=== PATIENT | male | born 2000 | race Caucasian/White ===

== ENCOUNTER 2020-05-01 12:50 | Outpatient (REF) | payer OTHER, SELFPAY | END 2020-05-01 12:51 | disposition home or self-care (01) | LOC: HO.LAB 12:50 | PROVIDERS: Visit Provider Internal Medicine | DX: Z20.828 Contact with and (suspected) exposure to other viral communicable diseases (principal) | CPT/HCPCS: C9803; U0003 ==

== ENCOUNTER 2024-12-13 11:12 | Emergency (ER) | payer BC, SELFPAY ==
--- NOTE | ~2024-12-13 | XR_ITS ---
EXAMINATION: XR CHEST CLINICAL INFORMATION: palpitations, dyspnea COMPARISON: None available. TECHNIQUE: 2 views of the chest were obtained. FINDINGS: Hyperinflated lungs. Questionable 3 mm pulmonary nodule, left lung apex. No consolidation, pleural effusion or pneumothorax. Cardiomediastinal silhouette size is normal. S-shaped curvature of the thoracic spine. XR/XR chest 2V IMPRESSION: Hyperinflated lungs. Questionable 3 mm pulmonary nodule, left lung apex. No acute airspace disease. Electronically signed by: Ulices Mane MD 12/13/2024 12:34 PM EDT
--- NOTE | 2024-12-13 11:18 | ECG_ITS ---
Test Reason : CHEST PAIN Blood Pressure : */* mmHG Vent. Rate : 76 BPM Atrial Rate : 76 BPM P-R Int : 114 ms QRS Dur : 100 ms QT Int : 356 ms P-R-T Axes : 71 77 57 degrees QTcB Int : 400 ms Normal sinus rhythm Incomplete right bundle branch block Borderline ECG No previous ECGs available Referred By: Generic ED Physician Electronically Signed By: Fam Gilbert
[2024-12-13 12:11] VITALS: BP 148/72; PULSE 68; RESP 18; TEMP 36.2; O2SAT 99; BMI 18.1
--- NOTE | 2024-12-13 12:11 | ED_ITS ---
HPI - General Adult General Chief complaint: Arrhythmia/Palpitations Stated complaint: CP, Heart Palpatations, couple weeks Time Seen by Provider: 12/13/24 15:14 Source: patient Mode of arrival: ambulatory Limitations: no limitations History of Present Illness ED Provider: America Stokes PA-C HPI narrative: Patient is a 24 year old assigned male at with a history of vaping presenting to the emergency department today with intermittent palpitations. Patient states that over the last 2 weeks he has had intermittent episodes of being able to feel his heart beat more than usual. Patient states that the first episode lasted for a week but it did get better and now it has returned. Patient denies any dizziness, lightheadedness, abdominal pain, nausea, vomiting, fever, chills, blurry vision, double vision, loss of vision, chest pain, back pain, night sweats, pain with urination, increased urinary frequency, increased urinary urgency, blood in his urine or stool, syncope or a near syncopal episode, recent trauma or falls, bowel incontinence, bladder incontinence, or any other complaints at this time. Onset (ago): week(s) (2) Relieving factors: none Exacerbating factors: none Associated symptoms: denies other symptoms Related Data Allergies Allergy/AdvReac Type Severity Reaction Status Date / Time amphetamine (From Adderall) Allergy Hives Verified 12/13/24 12:14 dextroamphetamine (From Allergy Hives Verified 12/13/24 12:14 Adderall) Review of Systems 2 Constitutional: Constitutional: Reports no additional constitutional complaints, Denies chills, Denies fever(s) and Denies night sweats Eyes: Eyes: Reports no additional eye complaints, Denies blurry vision, Denies change in vision, Denies diplopia, Denies eye discharge, Denies loss of vision and Denies eye pain ENT: Denies dizziness Cardiovascular: Cardiovascular: Reports no additional cardiovascular complaints, Denies chest pain, Denies lightheadedness, Denies Loss of Consciousness and Reports palpitations (intermittently) Respiratory: Respiratory: Reports no additional respiratory complaints Gastrointestinal: Gastrointestinal: Reports no additional gastrointestinal complaints, Denies abdominal pain, Denies melena, Denies hematochezia, Denies change in bowel habits and Denies change in stool character Genitourinary: Genitourinary: Reports no additional male genitourinary complaints, Denies hematuria, Denies oliguria, Denies difficulty urinating, Denies dysuria, Denies urinary frequency, Denies urinary hesitancy, Denies urinary incontinence and Denies urinary urgency Musculoskeletal: Musculoskeletal: Reports no additional musculoskeletal complaints, Denies numbness and Denies tingling Neurologic: Denies dizziness, Denies loss of vision, Denies numbness and Denies tingling Psychiatric: Psychiatric: Reports no additional psychiatric complaints Endocrine: Endocrine: Reports no additional endocrine complaints and Reports palpitations (intermittently) Hematologic/Lymphatic: Hematologic/Lymphatic: Reports no additional hematologic/lymphatic complaints Allergic/Immunologic: Allergic/Immunologic: Reports no additional allergic/immunologic complaints [facility] Past Medical History Attestation statement: The following information was validated with the patient. Source: old records reviewed and nursing notes reviewed Social History Social History Advance Directives: No Advance Directives Information Provided: No Physical Exam ED Vital Signs: Vital Signs - 24 hr 12/13/24 12:11 12/13/24 14:58 12/13/24 16:27 Temperature 97.2 F 98.6 F 98.6 F Pulse Rate 68 79 79 Respiratory Rate 18 16 16 Blood Pressure 148/72 H 140/65 H 140/65 H Pulse Oximetry 99 99 99 Oxygen Delivery Method Room Air Room Air Room Air BMI result Body Mass Index 18.1 Const General: cooperative, no acute distress, alert and awake Nutritional Appearance: well nourished Orientation/consciousness: patient oriented x3 HENMT Head: Yes normal to inspection and Yes atraumatic Ears: hearing grossly normal bilaterally and external ears normal General nose exam: Normal external nose present, no nasal discharge noted and no epistaxis Face and sinus: Yes normal facial exam, No abrasion and No laceration Mouth: Normal oral and palatal mucosa present, no drooling and no muffled voice Eyes General: appearance normal, both eyes and all related structures Periorbital: periorbital findings normal Eyelids: Yes eyelids normal Conjunctivae: conjunctivae normal Pupils: Equal, round and reactive pupils present EOM: EOMs intact bilaterally Neck Neck: Yes normal visual inspection and Yes full ROM Resp Effort & Inspection: normal respiratory effort and able to speak in complete sentences Neuro General: patient oriented x3, moves all extremities and CN's II-XI intact bilaterally Cranial nerves: Yes Equal, round and reactive pupils present Cognition (Neuro): normal cognition Extrem General: Yes normal to inspection, Yes full ROM and Yes capillary refill normal Psych Appearance: grossly normal Mental Status: mental status grossly normal Affect: normal affect Attitude: cooperative Thought process: Normal thought process present Thought content: Normal thought content present Insight: Good insight present (Psych) Course Course Course Narrative: This is a rapid medical exam performed by Zenobia Olivares NP: Additional HPI, ROS, PE not included below will be deferred to primary provider. Patient is a 24-year-old male presenting with complaint of intermittent palpitations for the past few weeks. Started around 8 or 9 am today. Denies chest pain, reports mild dyspnea associated. Denies recent cough, fevers. Plan: EKG, labs, CXR Medical Decision Making Medical Decision Making [facility] Narrative: Patient is a 24 year old assigned male at with a history of vaping presenting to the emergency department today with intermittent palpitations. Patient's physical exam was unremarkable. Patient's blood work was unremarkable. Patient's EKG was unremarkable. Patient's chest x-ray showed a 3mm nodule but was otherwise unremarkable. Patient's clinical presentation is most consistent with palpitations. I explained my physical exam findings as well as all test results to the patient. I answered all questions asked by the patient. I stressed the importance of the patient taking his medication as directed (either prescribed or as the over the counter packaging recommends). I stressed the importance of the patient following up with his primary care provider and the beater machine operator. I stressed the importance of the patient returning to the emergency department immediately if his symptoms were to worsen or if he were to develop any dizziness, shortness of breath, difficulty breathing, chest pain, blurry vision, loss of vision, nausea, vomiting, abdominal pain, fever, chills, back pain, or any other complaints. Patient verbalized agreement and understanding with this treatment plan and discharge. Differential Diagnosis Differential Diagnoses: The differential diagnosis associated with the presentation includes Palpitations Admission/Observation Consideration of admission/observation: Escalation of care including admission/observation considered Patient would have been admitted to the hospital had his work up had any findings where hospital admission was appropriate and his clinical presentation warranted hospital admission. Lab Data [facility] Lab Attestation statement: I reviewed the patient's lab results. My interpretation of these results are in the [facility] Rationale portion of this note. 12/13/24 12:30 12/13/24 12:30 Labs: Lab Results 12/13/24 12/13/24 Range/Units 12:30 15:16 WBC 8.7 (4.8-10.8) X10*3/uL RBC 4.86 (4.60-5.80) X10*6/uL Hgb 14.9 (14.0-18.0) g/dl Hct 40.4 L (42.0-52.0) % MCV 83.1 (80.0-98.0) fL MCH 30.7 (27.0-33.0) pg MCHC 36.9 H (31.0-36.0) g/dl RDW 11.9 (11.0-16.0) % Plt Count 288 (160-400) X10*3/uL MPV 9.5 (9.4-12.4) fL Immature Gran % (Auto) 0.2 (0.0-0.4) % Neut % (Auto) 56.4 (45-73) % Lymph % (Auto) 32.3 (20-40) % [place] % (Auto) 8.7 (2-11) % Eos % (Auto) 1.3 (0-4) % Baso % (Auto) 1.1 (0-2) % Lymph # (Auto) 2.8 (1.2-4.9) X10*3/uL [place] # (Auto) 0.8 (0.1-1.2) X10*3/uL Eos # (Auto) 0.1 (0.0-0.4) X10*3/uL Baso # (Auto) 0.1 (0.0-0.2) X10*3/uL Abs Immat Gran (auto) 0.02 (0.00-0.03) X10*3/uL Absolute Neuts (auto) 4.9 (2.0-8.3) x10*3/uL Absolute Nucleated RBC 0.000 (0.0-0.012) X10*3/uL Nucleated RBC % (auto) 0.0 (0.0-0.2) /100WBC Sodium 142 (135-145) mmol/L Potassium 4.1 (3.3-5.1) mmol/L Chloride 105 (96-108) mmol/L Carbon Dioxide 28 (22-29) mmol/L Anion Gap 13 (12-20) BUN 10 (9-16) mg/dL Creatinine 0.96 (0.5-1.4) mg/dL Estim Creat Clear Calc 89.8 Estimated GFR > 60 Random Glucose 93 (60-115) mg/dL Calcium 9.4 (8.4-10.2) mg/dL Magnesium 1.9 (1.6-2.6) mg/dL Total Bilirubin 0.4 (0.0-1.0) mg/dL AST 21 (5-37) U/L ALT 18 (0-40) U/L Alkaline Phosphatase 68 (39-117) U/L Total Protein 7.5 (6.5-8.0) g/dL Albumin 5.1 H (3.5-5.0) g/dL TSH 1.05 (0.32-4.0) uIU/mL Influenza Type A (PCR) NEGATIVE (Negative) Influenza Type B (PCR) NEGATIVE (Negative) RSV RNA Qual (PCR) NEGATIVE (Negative) SARS-CoV-2 RNA (RT-PCR) NEGATIVE (Negative) Independent Interpretation I performed an independent interpretation of an: EKG and Plain X-Ray Interpretation: My interpretation is in agreement with the radiologist's impression of this imaging study. L EXAMINATION: XR CHEST CLINICAL INFORMATION: palpitations, dyspnea COMPARISON: None available. TECHNIQUE: 2 views of the chest were obtained. FINDINGS: Hyperinflated lungs. Questionable 3 mm pulmonary nodule, left lung apex. No consolidation, pleural effusion or pneumothorax. Cardiomediastinal silhouette size is normal. S-shaped curvature of the thoracic spine. XR/XR chest 2V IMPRESSION: Hyperinflated lungs. Questionable 3 mm pulmonary nodule, left lung apex. No acute airspace disease. Electronically signed by: Ulices Mane MD 12/13/2024 12:34 PM EDT Dictated By: Ulices De La Cruz MD Signed By: Electronically signed by Ulices Davis MD 12/13/24 1234 I independently interpreted this EKG and am in agreement with the below findings: Vent. Rate: 76 BPM Atrial Rate: 76 BPM P-R Int: 114 ms QRS Dur: 100 ms QT Int: 356 ms P-R-T Axes: 71 77 57 degrees QTcB Int: 400 ms Normal sinus rhythm Incomplete right bundle branch block No previous ECGs available Electronically Signed By: Fam Gilbert Dictated By: Fam Gilbert MD Signed By: Electronically signed by Fam Gilbert MD 12/13/24 4714 Radiology Impression Discussion of test interpretation with radiology: I have reviewed the radiologist's reading. Discharge Plan Discharge Clinical Impression: Palpitations Patient Disposition: Home, Self-Care Instructions: Heart Palpitations (DC) Additional Instructions: Your work up today was reassuring that there is no EMERGENT process for your symptoms. Your chest x-ray did show an incidental (accidental) finding of a 3mm pulmonary nodule in the left lung apex. This is likely benign however, it is CRUCIAL you follow up about this with a primary care provider. You should follow up with a beater machine operator for your palpitations. IF you are prescribed home medications and/or you are taking over the counter medications at home - it is very important you continue to do so as prescribed / directed unless told otherwise. Follow up with a primary care provider. Return to the emergency department immediately if your symptoms worsen or if you develop any numbness, tingling, dizziness, shortness of breath, difficulty breathing, chest pain, blurry vision, loss of vision, nausea, vomiting, abdominal pain, fever, chills, back pain, or any other complaints. L If you do not have a primary care provider - call any of the below numbers to establish and follow up with a primary care provider. [facility] Primary Care ([place]) [phone] [place] [address], [address] [facility] Primary Care ([address] [place]) [phone] [place] [address], [address] [facility], [address] [facility] Primary Care ([address] [place]) [phone] [place] [address], [address] [facility], [address] [facility] Primary Care ([place]) [phone] [place] [address], [address] [place], [address] [facility] Family Medicine [phone] [place] [address], [address] Please see the information below about our Patient Portal. If you are not yet enrolled in the [facility] Patient Portal, you will receive an enrollment email invitation following your visit to any [facility] setting. You may also self-enroll in the Patient Portal by visiting our website: [email or web address] The following information is required to access the Patient Portal: - Your [facility] Medical Record Number - Your personal home email address (must match what is in your electronic medical record, Registration staff can assist with this) - Name - Date of Capabilities of the Patient Portal: - Message some providers - View upcoming appointments - Access your health summary, medical history, and visit history - View current conditions and allergies - View procedure and lab results - View your medications, including guidelines, side effects, and precautions - Complete pre-appointment questionnaires requested by your provider - Ready summary reports of your office visits and procedures To access the Patient Portal Mobile [employer], follow these directions: - Search Tailored Fit in the Virg[employer] Store or SupplyBid Store - Download the Vir[employer]ilio - Search for [facility] - Enter your login/password Referrals: [facility] Cardiovascular Specialists [Provider Group] Referral Note: Call to establish and follow up with the beater machine operator about your palpitations. Stand Alone Forms: Work/School Release Interventions: ED Discharge Assessment Last Done: 12/13/24 16:27 Discharge Date/Time: 12/13/24 16:27 Print Language: Macanese
[2024-12-13 12:36] LABS: MANUAL DIFF FLAG NO
[2024-12-13 12:37] LABS: Hematocrit 40.4 % (42.0-52.0); Hemoglobin 14.9 g/dl (14.0-18.0); Imm Gran Abs Auto 0.02 X10*3/uL (0.00-0.03); Imm Gran Pct Auto 0.2 % (0.0-0.4); Lymphocytes Absolute Auto 2.8 X10*3/uL (1.2-4.9); Mean Corpuscular HGB Conc 36.9 g/dl (31.0-36.0); Mean Corpuscular Hemoglobin 30.7 pg (27.0-33.0); Mean Corpuscular Volume 83.1 fL (80.0-98.0); NRBC Abs Auto 0.000 X10*3/uL (0.0-0.012); NRBC Pct Auto 0.0 /100WBC (0.0-0.2); Platelet Count 288 X10*3/uL (160-400); Red Blood Count 4.86 X10*6/uL (4.60-5.80); White Blood Count 8.7 X10*3/uL (4.8-10.8)
--- OUTSIDE RECORDS SUMMARY | 2024-12-13 12:41 | XMS_ITS | Encounter Summary ---
Author Organization [facility] Address [address] [place] [phone] Phone Care Team Providers Care Cigar Making Machine Operator Name Role Phone Willie Garcia MD Primary Care Provider [phone] Encounter Details Date Type Department Care Team (Late st Contact Info) Description 12/19/2016 Conversion Encounter [facility] [address] [place] [address] Social History Tobacco Use Types Packs/Day Years Used Date Smoking Tobacco: Never Comments:Never smoker Sex and Gender Information Value Date Recorded Sex Assigned at Not on file Legal Sex Male 5:14 PM EDT Gender Identity Not on file Sexual Orientation Not on file documented as of this encounter Plan of Treatment Not on file documented as of this encounter Visit Diagnoses Not on filedocumented in this encounter Care Teams Cigar Making Machine Operator Relationship Specialty Start Date End Date Willie Garcia MD [address] [place] [address] PCP - General 12/13/16 08/13/22 documented as of this encounter
--- OUTSIDE RECORDS SUMMARY | 2024-12-13 12:42 | XMS_ITS | Clinical Summary ---
Author Organization [facility] Address [address] [place] [address] Care Team Providers Care Application Support Technician Name Role Phone Unavailable Primary Care Provider Unavailabl e Source Comments PLEASE NOTE, if this patient is a minor, it may be UNLAWFUL to discuss sensitive information that is contained in these records (such as FAMILY PLANNING, MENTAL HEALTH or SUBSTANCE ABUSE) with the minor patient's parent or other person without the patient's specific authorization.[facility] Allergies No known active allergies Medications fluoride, sodium, (CLINPRO 5000) 1.1 % psteIndications :Risk for dental caries, high Colt twice a day every day for 2 minutes each time. Expectorate, but do not rinse,eat or drink for 30 minutes after using this. 112 g 3 03/22/2022 Active Active Problems No known active problems Social History Tobacco Use Types Packs/Day Years Used Date Smoking Tobacco: Never Smokeless Tobacco: Current Snuff Tobacco Cessation:Ready to Q uit: Not Asked; Counseling Given: Not Answered Social Connections Answer Date Recorded Connectedness 0 01/17/2024 Financial Resource Strain Answer Date R ecorded Financial Resource Strain 0 2021 Stress Answer Date Recorded Stress 0 03/22/2022 Physical Activity Answer Date Recorded Physical Activity 0 03/22/2022 Food Insecurity Answer Date Recorded Food 0 01/29/2024 Transportation Needs Answer Date Record ed Transportation 0 03/22/2022 Housing Stability Answer Date Recorded Housing 0 03/22/2022 Safety and Environment Answer Date Tomy rded Safety 0 03/22/2022 Utilities Answer Date Recorded Utilities 0 03/22/2022 Employment Answer Date Recorded Stress 0 01/17/2024 Sex and Gender Information Value Date Recorded Sex Assigned at Not on file Legal Sex Male 11:14 AM PDT Gender Identity Not on file Sexual Orientation Not on file Last Filed Vital Signs Vital Sign Reading Time Taken Comments Blood Pressure 130/77 03/22/2022 11:06 AM EST Pulse 82 03/22/2022 11:06 AM EST Temperature - - Respiratory Rate - - Oxygen Saturation - - Inhaled Oxygen Concentration - - Weight - - Height - - Body Mass Index - - Plan of Treatment Health Maintenance Due Date Last Done Comments Anxiety Screening 1999 Dental Perio Charting 1999 Dental Prophy 1999 Hepatitis C Screening 1999 Tobacco Cessation Counseling (#1) 1999 Tobacco Screening 1999 HIV Screening 2014 Imm-DTaP/Tdap/Td (7 - Td or Tdap) 03/15/2023 03/15/2013, 12/12/2004, 09/24/2000, Additional history exists Hypertension Screening (#1) 03/22/2023 Dental BW 03/24/2023 03/22/2022 Dental Examination 03/24/2023 03/22/2022 [id number] () 01/04/2024 Alcohol and Drug Screen 05/05/2024 Depression Annual Screen 05/05/2024 Imm-Influenza (#1) 2025 03/21/2016, 1 05/15/2014, 02/03/2013 Dental FMX/Pano 03/24/2027 03/22/2022 Imm-Hepatitis B Completed 09/24/2000, 02/03, 1999 Imm-Varicella Completed 03/22/2009, 02/26/2000 Imm-HPV Completed 01/19/2014, 10/2012, 02/03/2013 Procedures Procedure Name Priority Date/Time Associated Diagnosis Comments INTRAORAL - COMP SERIES OF RADIOGRAPHIC IMAGES Routine 03/22/2022 11:00 AM EST Caries of dentin COMP ORAL EVALUATION - NEW/ESTABLISHED PATIENT Routine 03/22/2022 11:00 AM EST Caries of dentin from Last 3 Months or Most Recently Relevant to Health Maintenance Insurance DELTA DENT[facility]
[2024-12-13 13:02] LABS: Alanine Aminotransferase 18 U/L (0-40); Albumin Level 5.1 g/dL (3.5-5.0); Alkaline Phosphatase 68 U/L (39-117); Anion Gap 13 (12-20); Aspartate Amino Transferase 21 U/L (5-37); Blood Urea Nitrogen 10 mg/dL (9-16); Calcium 9.4 mg/dL (8.4-10.2); Carbon Dioxide 28 mmol/L (22-29); Chloride 105 mmol/L (96-108); Creatinine Clr Calc Pharmacy 89.8; Estimated Glomerular Filt Rate > 60; Magnesium 1.9 mg/dL (1.6-2.6); Potassium 4.1 mmol/L (3.3-5.1); Sodium 142 mmol/L (135-145); Total Protein 7.5 g/dL (6.5-8.0)
[2024-12-13 14:58] VITALS: BP 140/65; PULSE 79; RESP 16; TEMP 37; O2SAT 99
[2024-12-13 15:58] LABS: Resp Syncy Virus RNA Qual PCR NEGATIVE (Negative); SARS COV2 PCR INHOUSE NEGATIVE (Negative)
[2024-12-13 16:27] VITALS: BP 140/65; PULSE 79; RESP 16; TEMP 37; O2SAT 99
== END 2024-12-13 16:27 | disposition home or self-care (01) ==
PROVIDERS: Physician Assistant Medical; Registered Nurse Emergency; Emergency Provider Emergency Medicine
DX: R00.2 Palpitations (principal); R06.00 Dyspnea, unspecified
CPT/HCPCS: 36415; 71046; 80053; 83735; 84443; 85025; 87637; 93005; 99283; 99284

== ENCOUNTER → 2024-12-13 11:18 | Outpatient (BNV) | payer BC, SELFPAY | PROVIDERS: Visit Provider Internal Medicine Cardiovascular Disease | DX: I45.10 Unspecified right bundle-branch block (principal) | CPT/HCPCS: 93010 ==

== ENCOUNTER → 2024-12-13 12:13 | Outpatient (BNV) | payer BC, SELFPAY | PROVIDERS: Visit Provider Radiology Diagnostic Radiology | DX: R06.00 Dyspnea, unspecified (principal) | CPT/HCPCS: 71046 ==

== ENCOUNTER 2025-01-05 13:21 | Outpatient (AMB) | payer BC, SELFPAY ==
[2025-01-05 13:26] VITALS: BP 110/62; PULSE 92; BMI 19.8
--- NOTE | 2025-01-05 13:26 | A.OFFVIS_ITS ---
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 Patient was recently in the emergency room for these where he was ruled out for ACS. Patient with no known history of coronary artery disease, ischemic disease, or cardiomyopathy. Patient does have some family history of coronary artery disease. 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 Patient is denying any exertional chest pain, shortness of breath, dizziness, orthopnea, PND, leg edema, presyncope or syncope. Patient notes that he vapes and is occasionally drinking malt beverages otherwise denies any heavy alcohol use. Patient also notes that he has quit energy drinks and is drinking about 24 to 32 oz water a day. [facility] Family History Father Heart attack Paternal Grandmother Heart attack Social History Alcohol intake: current Alcohol intake frequency: holidays/special occasions only Patient Tobacco Use Status: Never used Tobacco Substance Use Type: Inhalants Review of Systems Const Denies chills, Denies daytime sleepiness, Denies fatigue, Denies fever(s), Denies poor appetite, Denies snoring, Denies stops breathing during sleep, Denies weight gain and Denies weight loss Eyes Denies loss of vision Card Reports chest pain, Reports chest pain at rest, Reports chest pain with activity, Denies claudication, Denies leg edema, Denies lightheadedness, Denies palpitations, Denies dyspnea, Denies dyspnea on exertion and Denies orthopnea Resp Denies cough, Denies excessive phlegm production, Denies pain with cough, Denies dyspnea, Denies dyspnea on exertion, Denies snoring, Denies wheezing and Denies other GI Denies abdominal pain, Denies hematochezia, Denies change in bowel habits, Denies nausea and Denies vomiting Denies dysuria and Denies urinary frequency Musc Denies arthralgias and Denies muscle weakness Skin/Breast Denies nail changes and Denies rash Neuro Denies loss of vision and Denies memory loss Psych Denies depression, Reports difficulty concentrating, Denies auditory hallucinations and Denies memory loss Endo Denies fatigue and Denies palpitations Hung/Lymph Denies easy bruising Aller/Immun Denies wheezing Physical Exam Vital Signs: Last Vital Signs Pulse 92 01/05/25 13:26 BP 110/62 01/05/25 13:26 BMI result Body Mass Index 19.8 Const General: cooperative, healthy appearing, comfortable and no acute distress Orientation/consciousness: patient oriented x3 HEENT Head: Yes normal to inspection Neck Neck: Yes normal visual inspection, Yes trachea midline and Yes supple Chest Chest palpation & inspection: normal inspection of the chest Resp Effort & Inspection: normal respiratory effort Auscultation: clear to auscultation bilaterally, no crackles, no rales, no rhonchi and no wheezes Cardio Jugular venous distension: no JVD Palpation: normal PMI Rate: regular rate Rhythm: regular rhythm Heart sounds: S1 normal heart sound present, S2 normal heart sound present, no click, no gallops, no murmurs and no rubs Peripheral pulses: Peripheral pulses 2+ throughout GI Inspection: Yes normal to inspection Palpation (GI): Soft to palpation Auscultation: normal bowel sounds Skin General skin exam: no rashes or lesions noted Neuro General: patient oriented x3 Extrem General: Yes normal to inspection, No no pedal edema and No calf tenderness Psych Appearance: grossly normal Mental Status: mental status grossly normal Speech and movement: Normal speech and movement present Office Procedures EKG Details: EKG today showed normal sinus rhythm, rate 92 beats per minute, normal VT, [place]. [id number], Complete Assessment & Plan Assessment & Plan (1) Chest pain: Code(s): R07.9 - Chest pain, unspecified Category: Medical (2) Palpitations: Code(s): R00.2 - Palpitations Category: Medical (3) Shortness of breath: Code(s): R06.02 - Shortness of breath Category: Medical Plan Patient was recently in the hospital for palpitations and chest discomfort where he was ruled out for ACS. Patient's symptoms of chest pain and shortness of breath sounding atypical. His palpitations could be either supraventricular or ventricular ectopies, dehydration, or stress related. However, patient will need a complete cardiac workup to rule out cardiac etiology. Therefore, we will get a treadmill stress test to evaluate for ischemic changes. Patient will also get a echo to evaluate for LV systolic and diastolic dysfunction as well as valvular pathologies. We will also get a Holter study to assess for any potential arrhythmias. Treatment based on findings. Advised heart healthy diet, regular exercise, drinking at least 64 oz of water daily, stress medication strategies, and management of vascular risk factors. Follow up after the completion of testings. In the interim, patient will call the office with any concerns or change in symptoms. Advised to seek ER care in case of exertional chest pain not resolved with rest. This note was generated using voice recognition software. While every effort has been made to ensure accuracy and proper bankruptcy processor, there may be occasional errors that could affect the content or meaning of the described symptoms. Orders: Orders CA echo transthoracic complete Today R07.9 - Chest pain, unspecified CA stress test Today R07.9 - Chest pain, unspecified ECG 3 day holter monitor Today R00.2 - Palpitations AMB EKG-In Office Today R07.9 - Chest pain, unspecified Coding Level of Care Code New Pt Level 4 (94563) Complex EM visit Add On G2211 Diagnoses Chest pain R07.9 Palpitations R00.2 Shortness of breath R06.02 CPT Codes EKG - CPT: 27611-[id number], Complete ([id number]) Time Spent (min) 31 Comment Time spent in reviewing the chart, test results, assessment, counseling and documentation.
--- OUTSIDE RECORDS SUMMARY | 2025-01-05 15:38 | XMS_ITS | Clinical Summary ---
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 Schwartz 01/20 - to have surgical repair. Also with ptosis, which Dr. Schwartz states he would address afterward Immunizations Immunization Administration Dates Next Due DTaP 5 12/12/2004, 1,02/26/2000,08/21,1999 HPV, Quadrivalent 01/19/2014,03/10/2013,02/04/20 13 Hep A, ped/adol 01/19/2014,03/22/2009 Hep B, ped/adol 09/24/2000,02/26/2000,1999 Hib (HbOC) 09/24/2000,02/26/2000,1999 IPV 12/12/2004,09/24/2000 Influenza, injectable, quadr ivalent, preservative free 03/21/2016 Influenza, intranasal, quadrivalent 03/15/2015,1 MMR 12/12/2004,02/26/2000 Meningococcal Conj (Menactra) MCV4P 03/15/2015,1 05/15/2012 OPV 1999,1999 Tdap 03/15/2013 Varicella 03/22/2009,02/26/2000 Family History Relation Name Status Comments Brother Alive Brother: Alive and well Father Alive Father: Alive a nd well Mother Alive Mother: Alive a nd well Other Family history of Cancer, unknown, Family history of Hyperlipidemia, Family history of Migraines, Family history of Asthma, Family history of *Dental caries Paternal Grandfather Paterna l grandfather: Diabetes mellitus Social History Tobacco Use Types Packs/Day Years Used Date Smoking Tobacco: Never Smokeless Tobacco: Never Comments:Never smoker Sex and Gender Information Value Date Recorded Sex Assigned at Not on file Legal Sex Male 5:14 PM EDT Gender Identity Not on file Sexual Orientation Not on file Last Filed Vital Signs Vital Sign Reading Time Taken Comments Blood Pressure 96/59 10/12/2018 10:54 AM EDT Pulse 60 10/12/2018 10:54 AM EDT Temperature 36.6 C (97.8 F) 10/12/2018 10:54 AM EDT Respiratory Rate - - Oxygen Saturation - - Inhaled Oxygen Concentration - - Weight 55.7 kg (122 lb 12.8 oz) 019 10:54 AM EDT Height 167 cm (5' 5.75 ) 05/14/2016 12: 00 AM EST Body Mass Index - - Plan of Treatment Health Maintenance Due Date Last Done Comments DTaP,Tdap,and Td Vaccines (7 - Td or Tdap) 03/15/2023 03/15/2013, 12/12/2004, 09/24/2000, Additional history exists Influenza Vaccines (#1) 2024 03/21/20 16, 03/15/2015, 02/03/2013 COVID-19 Vaccine ( season) 2025 08/30/2020, 08/08/2020 HIB Vaccines Completed 09/24/2000, 02/03, 1999 Hepatitis B Vaccines Completed 09/24/2000, 02/26/2000, 1999 IPV Vaccines Completed 12/12/2004, 09/03, 1999, Additional history exists MMR Vaccines Completed 12/12/2004, 02/26/2000 Varicella Vaccines Completed 03/22/2009, 02/26/2000 HPV Vaccines Completed 01/19/2014, 10/2012, 02/03/2013 Hepatitis A Vaccines Completed 01/19/2014, 03/22/20 09 Meningococcal Vaccine Completed 03/15/2015, 013 Men B Vaccine Aged Out No longer elig ible based on patient's age to complete this topic Pneumococcal Vaccine Aged Out No long er eligible based on patient's age to complete this topic Insurance [employer]
--- OUTSIDE RECORDS SUMMARY | 2025-01-05 15:38 | XMS_ITS | Clinical Summary ---
Author Organization [facility] Address [address] [place] [address] Care Team Providers Care Putty And Caulking Supervisor Name Role Phone Unavailable Primary Care Provider [...] % psteIndications :Risk for dental caries, high [place] twice a day every day for 2 [...] BW 03/24/2023 03/22/2022 Dental Examination 03/24/2023 03/22/2022 [id number] () 01/04/2024 Alcohol and Drug Screen 05/05/2024 [...]
--- OUTSIDE RECORDS SUMMARY | 2025-01-05 15:38 | XMS_ITS | Encounter Summary ---
Author Organization [facility] Address [address] [place] [phone] Phone Care Team Providers Care Dressing Room Attendant Name Role Phone Willie Garcia MD Primary Care Provider Encounter Details Date Type Department Care Team (Late st Contact Info) Description 12/19/2016 Conversion Encounter [facility] [address] [place] [address] Social History Tobacco Use Types Packs/Day Years [...] on filedocumented in this encounter Care Teams Dressing Room Attendant Relationship Specialty Start Date End Date Willie Garcia MD [address] [place] [address] PCP - General 12/13/16 08/13/22 documented as of this encounter
== END 2025-01-05 14:00 | disposition home or self-care (01) ==
LOC: HO.HCS 13:21
DX: R07.9 Chest pain, unspecified (principal); R00.2 Palpitations; R06.02 Shortness of breath
CPT/HCPCS: 93010; 99204

== ENCOUNTER → 2025-01-05 13:21 | Outpatient (BNVA) | payer BC, SELFPAY | DX: R00.2 Palpitations (principal); R07.9 Chest pain, unspecified | CPT/HCPCS: 93005 ==

== ENCOUNTER 2025-01-29 10:32 | Outpatient (AMB) | payer OTHER, SELFPAY ==
--- OUTSIDE RECORDS SUMMARY | 2025-01-29 10:35 | XMS_ITS | Encounter Summary ---
Author Organization [facility] Address [address] [place] [phone] Phone Care Team Providers Care Sap Bods Developer Name Role Phone Willie Garcia MD Primary Care Provider [phone] Encounter Details Date Type Department Care Team (Late st Contact Info) Description 12/19/2016 Conversion Encounter [facility] [address] [place] [address] Social History Tobacco Use Types Packs/Day Years [...] on filedocumented in this encounter Care Teams Sap Bods Developer Relationship Specialty Start Date End Date Willie Garcia MD [address] [place] [address] PCP - General 12/13/16 08/13/22 documented as of this encounter
--- OUTSIDE RECORDS SUMMARY | 2025-01-29 10:35 | XMS_ITS | Clinical Summary ---
Author Organization [facility] Address [address] [place] [address] Care Team Providers Care Canning Machine Operator Name Role Phone Unavailable Primary Care Provider [...] % psteIndications :Risk for dental caries, high [place] twice a day every day for 2 [...] BW 03/24/2023 03/22/2022 Dental Examination 03/24/2023 03/22/2022 Alcohol and Drug Screen 05/05/2024 Depression Annual Screen 05/05/2024 [id number] ( season) 2025 Imm-Influenza (#1) 2025 03/21/2016, 1 05/15/2014, 02/03/2013 [...]
--- OUTSIDE RECORDS SUMMARY | 2025-01-29 10:35 | XMS_ITS | Clinical Summary ---
Author Organization [facility] Address [address] [place] [address] Phone Care Team Providers Care Ditch Tender Name Role Phone Unavailable Primary Care Provider [...]
[2025-01-29 10:41] VITALS: BP 108/60; PULSE 86; TEMP 36.7; O2SAT 99; BMI 19.8
--- NOTE | 2025-01-29 10:41 | MHC.OFFWIV ---
Intake Vital Signs 01/29/25 10:41 Height 5 ft 8 in Weight 58.967 kg BMI 19.8 BP 108/60 Blood Pressure Location Rt brachial Position Sitting Pulse 86 Pulse Source Pulse Oximeter Temp 98.1 F Temp Source Oral Pulse Oximetry (%) 99 Intake Visit Reasons: EP cough, cogestion, headache, sore throat Patient Tobacco Use Status: Never used Tobacco Allergies amphetamine (From Adderall) Allergy (Verified 01/29/25 10:42) Hives dextroamphetamine (From Adderall) Allergy (Verified 01/29/25 10:42) Hives Do you need a note to return to daycare/school/sports/work: Yes HPI HPI Comments History of Present Illness Details This is a 24-year-old male with no significant medical history who presents to the clinic for fatigue, malaise, myalgias, sore throat, headache, congestion, dry cough ongoing for the past 7-8 days. Not improving. He has tried [id number] medications with little to no relief. Denies chest pain, shortness of breath, nausea, vomiting, abdominal pain, fevers, chills, vision changes, dizziness and weakness Physical exam benign History and physical exam concerning for viral illness versus bronchitis( most likely) Unlikely pneumonia, PE, ACS, hypoxia, acute respiratory failure. I do not suspect strep throat, mononucleosis peritonsillar retropharyngeal abscess. No signs of epiglottitis or acute threat to airway Plan will obtain flu, COVID, RSV. Will send patient home on prednisone, benzonatate Perles and antibiotic due to length of symptoms. Educated patient on diagnosis and treatment plan, answered all question, patient verbalizes understanding. At this time patient will be discharged home, advised to return with new or worsening symptoms. Educated on worrisome signs and symptoms and when to return. At this time I feel comfortable discharge home. [facility] Family History Father Heart attack Paternal Grandmother Heart attack Social History Alcohol intake: current Alcohol intake frequency: holidays/special occasions only Patient Tobacco Use Status: Never used Tobacco Substance Use Type: Inhalants Review of Systems Const Details: Constitutional : No Weight loss, No Fever, No Chills, No Fatigue, No Malaise ENT/Mouth : No sore throat, No Rhinorrhea Eyes: No Eye Pain, No Swelling, No Redness Cardiovascular : No Chest Pain, No SOB, No Dyspnea on Exertion, No Orthopnea, No Edema, No Palpitations Respiratory : No Cough, No Sputum, No Wheezing Gastrointestinal : No Nausea, No Vomiting, No Diarrhea, No Constipation, No abdominal Pain, No Hematochezia, No Melena Genitourinary : No Dysuria, No Urinary Frequency, No Hematuria, Musculoskeletal : No joint pain, No Myalgias, No Joint Swelling Skin : No Skin Lesions, No rash Neuro : No Weakness, No Numbness, No Dizziness, No Headache Psych : No Anxiety/Panic, No Depression Heme/Lymph: No Bruising, No Bleeding,No Lymphadenopathy Endocrine : No Polyuria, No Polydipsia All other systems reviewed and are negative All systems reviewed & are unremarkable except as noted in HPI and below Physical Exam Exam Exam: Appearance: Alert.? Oriented X3.? No acute distress.? Head: Normocephalic, atraumatic, no step-offs or deformities Eyes: Pupils equal, round and reactive to light.? ENT: Pharynx normal.? Neck: Normal inspection.? Neck supple.? CVS: Normal heart rate and rhythm.? Pulses normal.? Respiratory: No respiratory distress.? Breath sounds normal.? Abdomen: Soft and nontender.? Skin: Skin warm and dry.? Normal skin color.? Normal skin turgor.? Extremities: No lower extremity edema.? No calf ttp. 5/5 strength to bilateral upper and lower extremities Back: No midline tenderness, no C-spine tenderness, full range of motion, no CVA tenderness bilaterally Neuro: Oriented X 3.? No motor deficit.? No sensory deficit. CN 2-12 intact Vital Signs: Last Vital Signs Temp 98.1 F 01/29/25 10:41 Pulse 86 01/29/25 10:41 BP 108/60 01/29/25 10:41 Pulse Ox 99 01/29/25 10:41 BMI result Body Mass Index 19.8 Vital signs stable Results AMB Rapid Strep AMB Rapid Strep Negative Last Edit by Jose M Godinez CMA on 01/29/25 10:51 Results Reviewed Results Reviewed: Laboratory Last Values Strep Scn Rapid Clinic Negative 01/29/25 10:47 Assessment & Plan Assessment & Plan (1) Upper respiratory infection: Code(s): J06.9 - Acute upper respiratory infection, unspecified (2) Bronchitis: Code(s): J40 - Bronchitis, not specified as acute or chronic Plan Take your medications as prescribed. If you were prescribed antibiotics today, it is important that you take your medication to their entirety, do not skip any doses, do not finish them early. Follow-up with your primary care provider this week. Return to the emergency department with new or worsening symptoms. Such as fevers, chills, chest pain, shortness of breath, nausea, vomiting, dizziness, headache, vision changes, lethargy In case of emergency call 911 Orders: Orders SARS-CoV2/FLU/RSV Today R09.89 - Other specified symptoms and signs involving the circulatory and respiratory systems AMB Rapid Strep Screen Today Z13.9 - Encounter for screening, unspecified Medications: New prednisone 40 mg (2 x 20 mg) PO DAILY 10 tabs 0RF 5 days benzonatate 100 mg PO BID PRN 14 caps 0RF cough doxycycline hyclate 100 mg PO BID 14 caps 0RF 7 days Coding Level of Care Code Est Pt Level 3 (93259) Diagnoses Upper respiratory infection J06.9 Bronchitis J40
== END 2025-01-29 10:54 | disposition home or self-care (01) ==
PROVIDERS: Visit Provider Physician Assistant
DX: J06.9 Acute upper respiratory infection, unspecified (principal); J40 Bronchitis, not specified as acute or chronic; Z13.9 Encounter for screening, unspecified

== ENCOUNTER 2025-01-29 10:32 | Outpatient (REF) | payer OTHER, SELFPAY ==
[2025-01-29 14:37] LABS: Resp Syncy Virus RNA Qual PCR NEGATIVE (Negative); SARS COV2 PCR INHOUSE NEGATIVE (Negative)
== END 2025-01-29 10:33 | disposition home or self-care (01) ==
LOC: HO.LAB 10:32
PROVIDERS: Physician Assistant
DX: J40 Bronchitis, not specified as acute or chronic (principal); R09.89 Other specified symptoms and signs involving the circulatory and respiratory systems; J06.9 Acute upper respiratory infection, unspecified; J02.9 Acute pharyngitis, unspecified
CPT/HCPCS: 87637; 87880

== ENCOUNTER → 2025-02-07 08:49 | Outpatient (REF) | payer OTHER, SELFPAY ==
--- NOTE | 2025-02-07 08:52 | CA_ITS ---
Transthoracic Echocardiogram Patient (Last, First, Middle): Jair Farr, Gender: Male Date of : 2000 Age: 24 Procedure Date: 02/07/2025 Procedure Type: Transthoracic Echocardiogram Location: OP Height: 172.72 cm Weight: 58.97 kg BSA: 1.70 m2 Heart Rate: bpm BP: 110 / 62 mmHg Licensing Coordinator: JOSH Referring MD: Rakesh Ricardo [employer] Nuclear Operations Specialist: Paddy Ovalles MD Symptoms: R07.9 - Chest pain, unspecified Study Quality: Adequate ECG Rhythm: Sinus Conclusions: - Normal study Findings Left Ventricle Normal left ventricular size, thickness, and systolic function. The visually estimated ejection fraction is between 60-65%. Diastolic function is normal for age.Peak GLS is -19.6%, within normal limits. Right Ventricle Normal right ventricular cavity size and systolic function. Atria Both atria are normal in size. There is no evidence of interatrial shunt. Aortic Valve Normal aortic valve structure and function. There is no aortic valve stenosis. There is no aortic valve regurgitation. Mitral Valve Normal mitral valve structure and function. There is trace mitral valve regurgitation. There is no mitral valve stenosis. Pulmonic Valve The pulmonic valve is likely normal. Tricuspid Valve Normal tricuspid valve structure. Tricuspid regurgitation envelope is inadequate for calculation of right ventricular systolic pressure. Normal right atrial pressure. Great Vessels All visible segments of the aorta are normal in size. The visualized portions of the pulmonary artery and branches are normal. Venous The inferior vena cava is normal in size and collapses greater than 50% with inspiration. Pericardium/Pleural There is no evidence of pericardial effusion. Prior Study Comparison No prior study available for comparison. Measurements 2D Linear Measurements IVSd: 0.59 0.6-0.9/0.6-1.0 cm LVIDd: 4.58 3.9-5.3/4.2-5.9 cm LVIDd Index: 2.69 2.4-3.2/2.2-3.1 cm/m2 LVIDs: 3.08 2.0-3.6 cm LVPWd: 0.83 0.7-1.1 cm LA Diam: 2.50 2.7-3.8/3.0-4.0 cm LAIDs Index: 1.47 1.5-2.3 cm/m2 LV Mass: 124.73 67-162/88-224 g LV Mass Index: 73.37 43-95/49-115 g/m2 LVOT Diam: 2.20 3.0+(-)1.3 cm 2D Systolic Function EF 4C: 63.60 >55% EF 2C: 64.00 >55% EF BiP: 63.90 >55% Mitral Valve MV Pk E: 0.87 MV PK A: 0.45 MV Decel Time: 250.00 E/A: 1.90 E'Lateral: 16.00 E'Medial: 13.80 E/E' Med: 6.30 E/E' Lat: 5.40 PHT: 73.00 MVA PHT: 3.01 Decel Yancey: 3.47 Aortic Valve AoV Pk Carter: 1.16 AoV Mn Carter: 0.83 AoV VTI: 0.22 AoV Pk Grad: 5.00 Aov Mn Grad: 3.00 OLGA Cont.VTI: 2.92 LVOT LVOT Pk Carter: 0.95 LVOT Mn Carter: 0.66 LVOT VTI: 0.17 LVOT Pk Grad: 4.00 LVOT Mn Grad: 2.00 LVOT Diam: 2.20 LVOT Area: 3.80 Diastolic Function MV Pk E: 0.87 MV Pk A: 0.45 E/A: 1.90 E'Medial: 13.80 E/E' Med: 6.30 E' Laterial: 16.00 E/E' Lat: 5.40 Right Ventricle TAPSE (mm): 20.00 TVS' Carter: 12.40 Tricuspid Valve RA Press: 3.00 Great Vessels Aorta Sinus of Valsalva: 2.99 2.0-3.[address] Ridge: 2.74 1.7-3.4 cm Updated in Other Vendor System with Status of Final Paddy Ovalles MD electronically signed on 02/08/2025 12:48:34 PM with status of Final
--- NOTE | 2025-02-07 08:52 | HM_ITS ---
* Total monitoring time 3 days. * Underlying rhythm is sinus with an average rate of 77/Min. * Isolated ventricular ectopic beat. * No significant pauses or high-grade AV blocks. * Patient marker used with mild sinus tachycardia at 116/Min. MTDD
--- NOTE | 2025-02-07 08:52 | CA_ITS ---
Acquisition Time: 2025-02-07 09:38:45 Total Exercise Time: 00:12:56 Test Indications: cp, sob Medications: see h&p Protocol: BRENNEN Max HR: 196 BPM 100% of Pred: 195 BPM Max BP: 132/70 mmHG Max Work Load: 15.0 METS Exercise stress test with exercise 12 min 56 sec of Brennen protocol, achieving 100% MPHR, with mild sob and fatigue and request to stop, with rare PVC, with normotensive response to exercise, without EKG changes meetiong criteria for ischemia. Test reviewed with Dr Ovalles Referred By: Rakesh Ricardo Electronically Signed By: NELSON PUENTES
--- OUTSIDE RECORDS SUMMARY | 2025-02-07 09:38 | XMS_ITS | Clinical Summary ---
Author Organization [facility] Address [address] [place] [address] Care Team Providers Care Geophysical Prospector Name Role Phone Unavailable Primary Care Provider [...] % psteIndications :Risk for dental caries, high [place] twice a day every day for 2 [...] Drug Screen 05/05/2024 Depression Annual Screen 05/05/2024 [id number] ( season) 2025 Imm-Influenza (#1) 2025 03/21/2016, [...]
--- OUTSIDE RECORDS SUMMARY | 2025-02-07 09:38 | XMS_ITS | Clinical Summary ---
Author Organization [facility] Address [address] [place] [phone] Phone Care Team Providers Care Health And Wellness Instructor Name Role Phone Unavailable Primary Care Provider [...]
--- OUTSIDE RECORDS SUMMARY | 2025-02-07 09:38 | XMS_ITS | Encounter Summary ---
Author Organization [facility] Address [address] [place] [phone] Phone Care Team Providers Care Urgent Care Physician Name Role Phone Willie Garcia MD Primary Care Provider Encounter Details Date Type Department Care Team (Late st Contact Info) Description 12/19/2016 Conversion Encounter [facility] [address] [place] [address] Social History Tobacco Use Types Packs/Day Years [...] on filedocumented in this encounter Care Teams Urgent Care Physician Relationship Specialty Start Date End Date Willie Garcia MD [address] [place] [address] PCP - General 12/13/16 08/13/22 documented as of this encounter
== END ==
LOC: HO.CARD 08:49
DX: R00.2 Palpitations (principal); R07.9 Chest pain, unspecified
CPT/HCPCS: 93017; 93242; 93306

== ENCOUNTER → 2025-02-07 08:52 | Outpatient (BNV) | payer OTHER, SELFPAY | PROVIDERS: Visit Provider Nurse Practitioner Family | DX: R07.9 Chest pain, unspecified (principal) | CPT/HCPCS: 93016; 93018; 93350; 93356 ==

== ENCOUNTER 2025-02-22 12:54 | Outpatient (AMB) | payer BC, SELFPAY ==
[2025-02-22 13:08] VITALS: BP 100/56; PULSE 71; BMI 18.9
--- NOTE | 2025-02-22 13:08 | A.OFFVIS_ITS ---
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 Patient was previously seen in the office for chest pain, palpitations, and shortness of breath. Since then patient underwent an echo, a stress test, and a Holter study. Patient notes that he was recently down with viral respiratory illness for which patient was on prednisone and doxy. Patient states that he is feeling much better now and is denying any exertional chest pain, shortness of breath, palpitations, dizziness, orthopnea, PND, leg edema, presyncope or syncope. Patient does note that he has been having random shortness of breath for which patient has been referred to ENT for evaluation of a possible deviated septum[facility] Family History Father Heart attack Paternal Grandmother Heart attack Social History Alcohol intake: current Alcohol intake frequency: holidays/special occasions only Patient Tobacco Use Status: Never used Tobacco Substance Use Type: Inhalants Review of Systems Const Denies daytime sleepiness, Denies difficulty sleeping, Denies snoring, Denies stops breathing during sleep and Denies weakness Card Denies chest pain, Denies rapid heart rate, Denies irregular heart rhythm, Denies claudication, Denies leg edema, Reports lightheadedness, Denies palp itations, Reports dyspnea, Denies dyspnea on exertion, Denies orthopnea, Denies paroxysmal nocturnal dyspnea and Denies slow heart rate Resp Denies cough, Reports dyspnea, Denies dyspnea on exertion and Denies snoring GI Reports no additional complaints, Denies hematochezia, Denies change in stool character and Denies dyspepsia Musc Denies abnormal gait, Denies muscle weakness and Denies numbness Neuro Denies abnormal gait, Denies numbness and Denies weakness Endo Denies palpitations Physical Exam Vital Signs: Last Vital Signs Pulse 71 02/22/25 13:08 BP 100/56 L 02/22/25 13:08 BMI result Body Mass Index 18.9 Const General: cooperative, healthy appearing, comfortable and no acute distress Orientation/consciousness: patient oriented x3 HEENT Head: Yes normal to inspection Neck Neck: Yes normal visual inspection, Yes trachea midline and Yes supple Chest Chest palpation & inspection: normal inspection of the chest Resp Effort & Inspection: normal respiratory effort Auscultation: clear to auscultation bilaterally, no crackles, no rales, no rhonchi and no wheezes Cardio Jugular venous distension: no JVD Palpation: normal PMI Rate: regular rate Rhythm: regular rhythm Heart sounds: S1 normal heart sound present, S2 normal heart sound present, no click, no gallops, no murmurs and no rubs Peripheral pulses: Peripheral pulses 2+ throughout GI Inspection: Yes normal to inspection Palpation (GI): Soft to palpation Auscultation: normal bowel sounds Skin General skin exam: no rashes or lesions noted Neuro General: patient oriented x3 Extrem General: Yes normal to inspection, No no pedal edema and No calf tenderness Psych Appearance: grossly normal Mental Status: mental status grossly normal Speech and movement: Normal speech and movement present Assessment & Plan Assessment & Plan (1) Chest pain: Code(s): R07.9 - Chest pain, unspecified Category: Medical (2) Shortness of breath: Code(s): R06.02 - Shortness of breath Category: Medical Plan Patient was in the hospital for palpitations and chest discomfort where he was ruled out for ACS. He came and saw us for further evaluation and has undergone ECHO, stress test, and a Holter study. 02/07/2025-echo study showed a normal LV systolic function with an ejection fraction between 60-65%. 02/07/2025-patient underwent a exercise stress test with mild shortness of breath and fatigue otherwise with no ischemic changes on the EKG. 02/07/2025-Holter study showed a underlying normal sinus rhythm with an average rate of 77 beats per minute with an isolated PVC. Given above findings and resolution of his symptoms, no indication for further testing at this point. Advised heart healthy diet, regular exercise, adequate hydration, stress medication strategies, and management of vascular risk factors. Follow-up on an as-needed basis. In the interim, patient will call the office with any concerns or change in symptoms. This note was generated using voice recognition software. While every effort has been made to ensure accuracy and proper twisting frame operator, there may be occasional errors that could affect the content or meaning of the described symptoms. Coding Level of Care Code Est Pt Level 3 (41508) Complex EM visit Add On G2211 Diagnoses Chest pain R07.9 Shortness of breath R06.02 Time Spent (min) 29 Comment Time spent in reviewing the chart, test results, assessment, counseling and documentation.
--- OUTSIDE RECORDS SUMMARY | 2025-02-22 16:32 | XMS_ITS | Encounter Summary ---
Author Organization [facility] Address [address] [place] [id number] Phone Care Team Providers Care Global Engineering Manager Name Role Phone Willei Garcia MD Primary Care Provider Encounter Details Date Type Department Care Team (Late st Contact Info) Description 12/19/2016 Conversion Encounter [facility] [address] [place] [address] Social History Tobacco Use Types Packs/Day Years [...] on filedocumented in this encounter Care Teams Global Engineering Manager Relationship Specialty Start Date End Date Willie Garcia MD [address] [place] [address] PCP - General 12/13/16 08/13/22 documented as of this encounter
--- OUTSIDE RECORDS SUMMARY | 2025-02-22 16:32 | XMS_ITS | Clinical Summary ---
Author Organization [facility] Address [address] [place] [id number] Phone Care Team Providers Care Nonprofit Fundraiser Name Role Phone Unavailable Primary Care Provider [...]
--- OUTSIDE RECORDS SUMMARY | 2025-02-22 16:32 | XMS_ITS | Clinical Summary ---
Author Organization [facility] Address [address] [place] [address] Care Team Providers Care Lion Tamer Name Role Phone Unavailable Primary Care Provider [...] % psteIndications :Risk for dental caries, high [place] twice a day every day for 2 [...] Drug Screen 05/05/2024 Depression Annual Screen 05/05/2024 [id number] ( season) 2025 Imm-Influenza (#1) 2025 03/21/2016, [...]
== END 2025-02-22 13:47 | disposition home or self-care (01) ==
LOC: HO.HCS 12:55
DX: R07.9 Chest pain, unspecified (principal); R06.02 Shortness of breath
CPT/HCPCS: 99213